=== PATIENT | male | born 1945 | race Caucasian/White ===

== ENCOUNTER 2021-03-14 06:40 | Outpatient (CLI) | payer MEDICARE, MEDICAID, SELFPAY ==
--- NOTE | ~2021-03-14 | MR_ITS ---
EXAMINATION: MR pelvis wo/w con DATE: 03/14/2021 08:31 INDICATION: Malignant neoplasm of the prostate. TECHNIQUE: Magnetic resonance imaging (MRI) of the pelvis was performed without and with 18 mL Multih ance intravenous contrast. Fullfield sequences of the pelvis included axial and coronal T2-weighted S S FSE, axial, sagittal and coronal 2D FIESTA, axial 2D FIESTA FS, axial SSFSE-IR CLIFF, axial dual-echo T1-weighted FSPGR, axial and coronal T1 weighted LAVA, 3D axial T2 Cube, axial diffusion-weighted SE with apparent diffusion coefficient (ADC) maps. Postcontrast sequences included a time course axial T1-weighted LAVA and sagittal and coronal T1-weighted LAVA. COMPARISON: None. FINDINGS: There is a small region of T2 hyperintense likely hydrogel situated between the posterior margin of t he prostate in the anterior wall of the rectum. The collection measures 3.2 cm craniocaudally, 3.0 le ft right and 1.7 cm in maximal AP dimension. Bladder and visualized bowels are unremarkable. Moderate lumbar spondylosis. Small fat-containing umbilical hernia. No pathologically enlarged pelvic or ingu inal lymphadenopathy. Prominent multiloculated para labral cyst measuring 3.6 x 2.6 x 1.0 cm.6 x 1.0 cm posterior to posterolateral rim of the left acetabulum suggesting associated labral tear. Mild flu id signal and enhancement along the left greater trochanter consistent with mild left gluteus medius bursitis. Normal bone marrow signal with no pathologic marrow replacing process. IMPRESSION: 1. No evident metastatic disease in the pelvis. 2. 3.2 x 3.0 x 1.7 cm collection likely had shown between the prostate and the anterior wall of the r ectum. 3. Small fat-containing umbilical hernia. Reviewed, dictated and finalized at location A. PER FELLER IMPRESSION: 1. No evident metastatic disease in the pelvis. 2. 3.2 x 3.0 x 1.7 cm collection likely had shown between the prostate and the anterior wall of the rectum. 3. Small fat-containing umbilical hernia.
[2021-03-14 07:30] LABS: Estimated Glomerular Filt Rate > 60
== END 2021-03-14 06:41 | disposition home or self-care (01) ==
PROVIDERS: Visit Provider Radiology Radiation Oncology
DX: C61 Malignant neoplasm of prostate (principal); K42.9 Umbilical hernia without obstruction or gangrene
CPT/HCPCS: 72197; A9577